=== PATIENT | female | born 1985 | race Hispanic/Latino ===

== ENCOUNTER 2019-03-03 02:11 | Inpatient (IN) | payer MEDICAID, OTHER ==
[~2019-03-03] VITALS: Ht 160 cm; Wt 102.1 kg
[2019-03-03 03:00] LABS: APPEARANCE,URINE Clear (CLEAR); BILIRUBIN,URINE Small (NEGATIVE); GLUCOSE, URINE (UA) Negative (NEGATIVE); KETONES,URINE >=80 mg/dL (NEGATIVE); LEUKOCYTE ESTERASE ,URINE Trace (NEGATIVE); NITRATE,URINE Negative (NEGATIVE); OCCULT BLOOD,URINE Negative (NEGATIVE); PH,URINE 5.5 (5.0-8.0); PROTEIN,URINE Trace mg/dL (NEGATIVE)
[2019-03-03 03:03] LABS: COLOR,URINE YELLOW (YELLOW)
[2019-03-03 03:17] LABS: BACTERIA,URINE Moderate /HPF (None Seen)
[2019-03-03] MEDS ORDERED: BUTORPHANOL TARTRATE 2 MG/ML IVP PRN (04:20)
[2019-03-03] MEDS ORDERED: BUTORPHANOL TARTRATE 2 MG/ML ONE (04:28)
[2019-03-03] MEDS ORDERED: LACTATED RINGERS 1000ML 1,000 ML IV SCH (11:15)
[2019-03-03] MEDS ORDERED: CEFAZOLIN SODIUM 1 GM VIAL IVP PRN (11:15)
[2019-03-03 11:43] LABS: HEMATOCRIT 31.2 % (36-48); MEAN CORPUSCULAR HEMOGLOBIN 28.6 pg (27.0-33.0); MEAN CORPUSCULAR HGB CONC 32.6 g/dL (32.0-36.0); MEAN CORPUSCULAR VOLUME 87.9 fL (79-99); PLATELET COUNT (AUTO) 267 K/uL (130-400); RED BLOOD CELL COUNT(AUTO) 3.55 MIL/uL (4.00-5.50); RED CELL DISTRIBUTION WIDTH 15.3 % (11.0-15.5); WHITE BLOOD COUNT (AUTO) 7.4 K/uL (4.8-10.8)
[2019-03-03] MEDS ORDERED: ONDANSETRON HCL 4 MG/2 ML VIAL ONE (12:36)
[2019-03-03] MEDS ORDERED: DEXAMETHASONE SOD PHOSPHATE 10MG/ML 1ML VIAL ONE (12:36)
[2019-03-03] MEDS ORDERED: OXYTOCIN 10 USP UNITS/ML ONE (12:37)
[2019-03-03] MEDS ORDERED: FENTANYL CITRATE PF 50 MCG/1 ML 2ML VIAL ONE (12:37)
[2019-03-03] MEDS ORDERED: DURAMORPH PF1 MG/ML 10ML AMP IV ONE (12:38)
[2019-03-03] MEDS ORDERED: CEFAZOLIN SODIUM 1 GM VIAL IVP ONE (13:35)
[2019-03-03] MEDS ORDERED: DiphenhydrAMINE HCL 50 MG/ML VIAL ONE (14:38)
[2019-03-03] MEDS ORDERED: MEPERIDINE-PF 75 MG/ML SYG IM PRN (15:00)
[2019-03-03] MEDS ORDERED: DEXTROSE 5 %-0.45 % NACL 1,000 ML IV PRN (15:00)
[2019-03-03] MEDS ORDERED: OXYTOCIN-LR 20 UNITS/1000 ML 1,000 ML IV PRN (15:00)
[2019-03-03] MEDS ORDERED: PROMETHAZINE HCL 25 MG/ML 1ML AMPULE IM PRN ×2 (15:00→17:15)
[2019-03-03 16:15] VITALS: BP 122/66
[2019-03-03] MEDS ORDERED: PREN-154 PO (16:32)
[2019-03-03] MEDS ORDERED: DiphenhydrAMINE HCL 50 MG/ML VIAL IVP PRN (17:15)
[2019-03-03] MEDS ORDERED: NALOXONE HCL 0.4 MG/1 ML ML IVP PRN ×2 (17:15)
[2019-03-03] MEDS ORDERED: EPHEDRINE SULFATE 50 MG/ML AMPULE IVP PRN (17:15)
[2019-03-03] MEDS ORDERED: METOCLOPRAMIDE 10 MG/2 ML VIAL IVP PRN (17:15)
[2019-03-03] MEDS ORDERED: ONDANSETRON HCL 4 MG/2 ML VIAL IVP PRN (17:15)
[2019-03-03] MEDS ORDERED: MORPHINE SULFATE 2 MG/ML 1ML SYG IVP PRN (17:15)
[2019-03-03] MEDS ORDERED: HYDROCODONE/ACETAMINOPHEN 5/325 MG TAB PO PRN ×2 (17:15)
[2019-03-03] MEDS ORDERED: ONDANSETRON HCL MDV 20ML 2 MG/ML VIAL IVP PRN (18:15)
[2019-03-03 19:39] VITALS: BP 112/67
[2019-03-03 23:21] VITALS: BP 100/60
[2019-03-04 03:24] VITALS: BP 114/85
--- NOTE | 2019-03-04 04:00 | NUR ---
ACTIVITY ASSISTED UP TO SIDE OF BED TO DANGLE , TOLERATED WELL, UP TO CHAIR Addendum: 03/04/19 at 0647 by CATE CONTI LVN Amended: Links added.
--- NOTE | 2019-03-04 05:00 | NUR ---
ACTIVITY TO NSY VIA W/C, NO CONCERNS VOICED, SPOUSE AT SIDE Addendum: 03/04/19 at 0651 by CATE CONTI LVN Amended: Links added.
[2019-03-04 06:13] LABS: HEPATITIS Bs ANTIGEN SCREEN P Negative (Negative)
[2019-03-04 06:44] LABS: HEMATOCRIT 28.7 % (36-48); MEAN CORPUSCULAR HEMOGLOBIN 29.7 pg (27.0-33.0); MEAN CORPUSCULAR HGB CONC 33.3 g/dL (32.0-36.0); MEAN CORPUSCULAR VOLUME 89.2 fL (79-99); NUCLEATED RED BLOOD CELLS 0.1 % (0.0-0.19); PLATELET COUNT (AUTO) 242 K/uL (130-400); RED BLOOD CELL COUNT(AUTO) 3.22 MIL/uL (4.00-5.50); RED CELL DISTRIBUTION WIDTH 15.1 % (11.0-15.5); WHITE BLOOD COUNT (AUTO) 9.6 K/uL (4.8-10.8)
[2019-03-04] MEDS ORDERED: ACETAMINOPHEN EXTRA STRENGTH 500 MG TABLET PO PRN (06:45)
[2019-03-04] MEDS ORDERED: LANOLIN 30GM OINTMENT TP PRN (06:45)
[2019-03-04] MEDS ORDERED: BISACODYL 10 MG SUPP.RECT RC PRN (06:45)
[2019-03-04] MEDS ORDERED: HYDROCODONE/ACETAMINOPHEN 5/325 MG TAB PO PRN (06:45)
[2019-03-04 07:41] VITALS: BP 97/58
--- NOTE | 2019-03-04 08:00 | NUR ---
WILKINSON CATHETER WAS REMOVED AND DRAINED 800CC OF YELLOW URINE. PATIENT ASSISTED TO CHAIR AND TOLERATED ACTIVITY WELL. ORDER LEFT BY DR. YATES AT 0641 FOR REMOVAL OF WILKINSON CATHETER.
[2019-03-04] MEDS: DOCUSATE SODIUM 100 MG CAP PO SCH ×2 (08:20→20:51)
[2019-03-04] MEDS: SIMETHICONE 80 MG TAB.CHEW PO PRN ×4 (08:20→20:51)
[2019-03-04] MEDS: ACETAMINOPHEN-CODEINE 300/30MG TAB PO PRN ×2 (08:21→20:53)
--- NOTE | 2019-03-04 11:15 | NUR ---
PATIENT VOIDED AND HAD PIV REMOVED SO SHE COULD GO VISIT WITH BABY IN NURSERY. TOLERATED ACTIVITY WELL.
[2019-03-04 11:40] VITALS: BP 97/55
[2019-03-04] MEDS: IBUPROFEN 600 MG TABLET PO PRN ×2 (12:48→18:18)
[2019-03-04 16:38] VITALS: BP 91/50
--- NOTE | 2019-03-04 18:15 | NUR ---
PATIENT TO NURSERY TO VISIT WITH AND WAS GIVEN MOTRIN AND MYLICON PRIOR TO AMBULATING TO NURSERY.
[2019-03-04 20:00] VITALS: BP 95/51
[2019-03-04 23:22] VITALS: BP 112/57
[2019-03-05 03:25] VITALS: BP 111/56
[2019-03-05] MEDS: IBUPROFEN 600 MG TABLET PO PRN ×2 (03:56→09:10)
[2019-03-05] MEDS: ACETAMINOPHEN-CODEINE 300/30MG TAB PO PRN ×2 (07:01→15:09)
[2019-03-05 08:36] VITALS: BP 113/58
[2019-03-05] MEDS: SIMETHICONE 80 MG TAB.CHEW PO PRN ×2 (09:08→15:08)
[2019-03-05] MEDS: DOCUSATE SODIUM 100 MG CAP PO SCH (09:08)
--- NOTE | 2019-03-05 11:15 | NUR ---
DR. FRANCIS ROUNDED AND DISCHARGED PATIENT TO HOME. PATIENT INSTRUCTED ON S&S FOR ED.
[2019-03-05 11:26] VITALS: BP 114/65
--- NOTE | 2019-03-05 14:15 | NUR ---
PATIENT WENT TO NURSERY TO VISIT WITH BABY. PATIENT STABLE AND DENIES PAIN.
--- NOTE | 2019-03-05 15:10 | NUR ---
PATIENT BACKK FROM NURSERY AND HAD FULL BLADDER AND IN SHARP PAIN. PATIENT VOIDED AND WAS MEDICATED WITH TYLENOL #3 AND WAS GIVEN TWO TABS.
--- NOTE | 2019-03-05 15:40 | NUR ---
DISCHARGE INSTRUCTIONS GIVEN AND VERBALIZED DOING WELL AND HAD RELIEF OF PAIN. SCRIPT FOR HOME PAIN MANAGEMENT GIVEN AND INSTRUCTED ON DOSAGE AND FREQUENCY. VERBALIZED UNDERSTANDING INSTRUCTIONS GIVEN.
--- NOTE | 2019-03-05 16:20 | NUR ---
PATIENT AND SPOUSE WENT TO NURSERY TO VISIT WITH AND WAS TAKEN VIA W/C TO FAMILY VEHICLE AND DISCHARGED TO SPOUSE AT THIS TIME. PATIENT STABLE AND DENIES SHARP PAIN. STATES PAIN LEVEL OF 1.
== END 2019-03-05 16:20 | disposition home or self-care (01) | DRG 540 ==
LOC: EDH 02:11 → OBSVTOIN 02:12 → LDH 02:12 → WSH 16:25
PROVIDERS: ADMIT Specialist; ATTEND Specialist
PROC: 10D00Z1 Extraction of Products of Conception, Low, Open Approach (ICD-10-PCS; 2019-03-03)
PROC: 0UB70ZZ Excision of Bilateral Fallopian Tubes, Open Approach (ICD-10-PCS; principal; 2019-03-03 13:30)
DX: O34.211 Maternal care for low transverse scar from previous cesarean delivery (principal); Z30.2 Encounter for sterilization; Z37.0 Single live birth; Z3A.37 37 weeks gestation of pregnancy
CPT/HCPCS: 36415; 59510; 81001; 85027; 86592; 86850; 86900; 86901; 87340; 88302; 96360; 96361; A4344; A4606; G0378; J0595; J0690; J1100; J1200; J2274; J2405; J2590; J3010; J7120

== ENCOUNTER 2019-06-17 09:06 | Emergency (ER) | payer MEDICAID, OTHER ==
[~2019-06-17 09:06] MED LIST: PREN-154 PO
[2019-06-17 09:33] LABS: APPEARANCE,URINE CLOUDY (CLEAR); BILIRUBIN,URINE SMALL (NEGATIVE); COLOR,URINE ORANGE (YELLOW); GLUCOSE, URINE (UA) NEGATIVE (NEGATIVE); KETONES,URINE NEGATIVE (NEGATIVE); LEUKOCYTE ESTERASE ,URINE TRACE (NEGATIVE); NITRATE,URINE POSITIVE (NEGATIVE); OCCULT BLOOD,URINE LARGE (NEGATIVE); PROTEIN,URINE 100 mg/dL (NEGATIVE)
[2019-06-17 09:34] LABS: BASOPHILS % (AUTO) 0.9 % (0.0-5.0); EOSINOPHILS % (AUTO) 3.8 % (0.0-8.0); HEMATOCRIT 37.6 % (36-48); LYMPHOCYTES % (AUTO) 25.8 % (21.0-51.0); MEAN CORPUSCULAR HEMOGLOBIN 30.3 pg (27.0-33.0); MEAN CORPUSCULAR HGB CONC 33.5 g/dL (32.0-36.0); MEAN CORPUSCULAR VOLUME 90.4 fL (79-99); MONOCYTES % (AUTO) 4.9 % (3.0-13.0); NEUTROPHILS % (AUTO) 64.6 % (40.0-77.0); PLATELET COUNT (AUTO) 347 K/uL (130-400); RED BLOOD CELL COUNT(AUTO) 4.16 MIL/uL (4.00-5.50); RED CELL DISTRIBUTION WIDTH 14.9 % (11.0-15.5)
[2019-06-17 09:38] LABS: HCG,QUAL RESULT NEGATIVE (NEGATIVE)
[2019-06-17 09:43] LABS: CREATININE 0.7 mg/dL (0.5-1.5); POTASSIUM 3.8 mmol/L (3.5-5.1)
[2019-06-17 09:46] LABS: RBC,URINE TNTC /HPF (0-1)
[2019-06-17 09:47] LABS: ALBUMIN 3.3 g/dL (3.5-5.0); BACTERIA,URINE Moderate /HPF (None Seen); BILIRUBIN,TOTAL 0.4 mg/dL (0.2-1.0)
== END 2019-06-17 10:23 | disposition home or self-care (01) ==
LOC: EDH 09:06
DX: K43.9 Ventral hernia without obstruction or gangrene (principal); N39.0 Urinary tract infection, site not specified; R10.30 Lower abdominal pain, unspecified
CPT/HCPCS: 36415; 80053; 81001; 81025; 83690; 85025